=== PATIENT | male | born 1945 | race Caucasian/White ===

== ENCOUNTER 2017-04-26 05:44 | Day surgery (SDC) | payer MEDICARE, OTHER ==
[2017-04-26] MEDS ORDERED: LACTATED RINGERS 1,000 ML ONE (06:05)
[2017-04-26] MEDS ORDERED: LIDOCAINE 1% 10 ML VIAL INJ ONE (09:00)
[2017-04-26] MEDS ORDERED: PROPOFOL 200 MG/20 ML VIAL IV ONE (09:00)
[2017-04-26 09:01] VITALS: BP 126/72; TEMP 98.1; O2SAT 94
--- NOTE | 2017-04-26 09:10 | OP ---
DATE OF PROCEDURE: 04/26/17 PREOPERATIVE DIAGNOSIS: 1. History of polyps. Last colonoscopy was in 2006. POSTOPERATIVE DIAGNOSIS: 1. Ascending colon polyp. 2. Diverticulosis. PROCEDURE: 1. Colonoscopy plus polypectomy. SURGEON: Kameron Moody MD. COMPLICATIONS: None apparent. BLOOD LOSS: None. MEDICATIONS: Monitored anesthesia care. DESCRIPTION OF PROCEDURE: Informed consent was obtained prior to sedation. The preprocedure cardiopulmonary assessment was satisfactory. The patient was placed in the left lateral decubitus position and was sedated. A digital rectal exam was unremarkable. There were no rectal masses and the prostate was appropriate size for his age. The tip of the Olympus colonoscope was inserted in the rectum and guided over to the cecum. The cecum was identified by locating the ileocecal valve and appendiceal orifice. Prep was good. The mucosa of the cecum, ascending colon, hepatic flexure, transverse colon, splenic flexure, descending colon and sigmoid colon was closely examined. Direct and retroflexed views of the rectum were obtained. There was a 8 mm sessile, multilobed polyp in the mid-ascending colon. This was removed with a hot snare and recovered. The patient has numerous large and small-mouth diverticula in the sigmoid colon. Otherwise, colonoscopy was unremarkable. RECOMMENDATIONS: 1. Followup colonic polyp pathology. 2. Timing of followup colonoscopy was determined with the polyp pathology is available. #[id number] [facility]ITAL[facility]yn[facility]
== END 2017-04-26 09:15 | disposition home or self-care (01) ==
LOC: AMB 05:44
PROVIDERS: ATTEND Internal Medicine Gastroenterology
DX: Z12.11 Encounter for screening for malignant neoplasm of colon (principal); D12.2 Benign neoplasm of ascending colon; K57.30 Diverticulosis of large intestine without perforation or abscess without bleeding; E11.9 Type 2 diabetes mellitus without complications; I10 Essential (primary) hypertension; F17.220 Nicotine dependence, chewing tobacco, uncomplicated; Z86.010 Personal history of colon polyps; Z79.82 Long term (current) use of aspirin; Z79.84 Long term (current) use of oral hypoglycemic drugs; Z79.899 Other long term (current) drug therapy
CPT/HCPCS: 00810; 36416; 45385; 82948; 88305; J3490; J7120

== ENCOUNTER → 2017-09-21 | Outpatient (CLI) | payer MEDICARE, OTHER | END | disposition home or self-care (01) | LOC: GMAJ 10:37 | PROVIDERS: ATTEND Family Medicine | DX: Z12.5 Encounter for screening for malignant neoplasm of prostate (principal); I10 Essential (primary) hypertension | CPT/HCPCS: 84443; G0103 ==

== ENCOUNTER → 2018-08-27 | Outpatient (CLI) | payer MEDICARE, OTHER ==
--- NOTE | 2018-08-27 11:13 | US ---
EXAM DESCRIPTION: Abdomen,Complete: Ultrasound. CLINICAL HISTORY: EPIGASTRIC PAIN COMPARISON: None Available. TECHNIQUE: Transabdominal scannin-dimensional and Doppler modes. Large patient body habitus. FINDINGS: Gallbladder: Normal size and echogenicity with no intraluminal stones or sludge. No wall thickness 0.9 mm. No fluid around the gallbladder. Nontender with transducer pressure. Common bile duct: 3.6 mm normal caliber. Liver: Long axis right lobe 16.2 cm. Heterogeneously dense. Posterior liver and capsule difficult to visualize. Normal hepatopedal flow in the portal vein and normal caliber. Visualized ducts normal caliber. Visualized capsule smooth. No ascites. Pancreas: Normal size and echogenicity. Duct not seen.. Abdominal aorta: Normal caliber of the proximal, mid, and distal segment. IVC: visualized; normal caliber. Spleen normal echogenicity; long axis measurement is 12.5 cm. Right kidney: 11.5 cm long axis. Normal cortical thickness and echogenicity. No hydronephrosis or perinephric fluid. Left kidney: 11.7 cm long axis. Normal cortical thickness and echogenicity. No hydronephrosis or perinephric fluid. IMPRESSION: 1. Limited study due to patient large body habitus. Liver borderline enlarged with steatosis. Posterior liver not well visualized. Grossly normal. No ascites. 2. Other visualized abdominal organs are negative. Normal caliber of the abdominal aorta and IVC. Electronically signed by: German Mata MD 08/27/2018 11:11 AM SALES OFFICE MANAGER
== END ==
LOC: US 08:38
PROVIDERS: ATTEND Family Medicine
DX: R10.13 Epigastric pain (principal); K76.0 Fatty (change of) liver, not elsewhere classified

== ENCOUNTER → 2020-05-27 | Outpatient (CLI) | payer MEDICARE, OTHER | LOC: GMAJ 14:40 | PROVIDERS: ATTEND Family Medicine | DX: Z12.5 Encounter for screening for malignant neoplasm of prostate (principal) ==